=== PATIENT | female | born 1960 | race Caucasian/White ===

== ENCOUNTER 2019-09-02 14:28 | Emergency (ER) | payer OTHER ==
--- NOTE | 2019-09-02 15:51 | RAD ---
Exam: XR Wrist 3 Rt View STANDARD HISTORY: Slipped and fall. Injury to right wrist. COMPARISON: None FINDINGS: There is a transverse minimally but nondisplaced fracture involving the distal right radial metaphysis. No significant angulation of fracture fragments is present. No additional fracture is seen. Mild subcutaneous soft tissue swelling is present. IMPRESSION: Transverse minimally but nondisplaced distal right radial metaphyseal fracture.
--- NOTE | 2019-09-02 15:53 | RAD ---
Exam: XR Forearm Rt 2 View STANDARD HISTORY: Injury after slipping and falling. Pain to right arm. COMPARISON: None FINDINGS: As noted on views of the right wrist, there is a predominantly transverse fracture involving the dist al right radial metaphysis. However, views of forearm demonstrate that the fracture is mildly comminuted, but no intra-articular extension of the fracture is appreciated. There is no significant angulation or distraction of fracture fragments. No additional fracture seen, and there is no dislocation. IMPRESSION: Mildly comminuted distal right radial metaphyseal fracture.
--- NOTE | 2019-09-02 15:54 | RAD ---
Exam: XR Elbow Rt 2 View HISTORY: Right elbow injury. Right arm pain. COMPARISON: None FINDINGS: No acute fracture, dislocation, or other acute osseous abnormality is identified. IMPRESSION: No acute osseous abnormality is identified.
--- NOTE | 2019-09-02 15:54 | RAD ---
Exam: XR Knee Lt 4 View STANDARD HISTORY: Injury after slipping and falling. Patient complains of left leg pain. COMPARISON: None FINDINGS: Mild tricompartment osteophytosis is present. No acute fracture, dislocation, or other acute osseous abnormality is identified. There is suggestion of small amount of fluid in the suprapatellar location which is likely physiologi c. IMPRESSION: No acute osseous abnormality is identified.
--- NOTE | 2019-09-02 15:56 | RAD ---
Exam: XR Foot Lt 3 View STANDARD HISTORY: Left foot injury after slipping and falling. COMPARISON: None FINDINGS: Small round lucency is seen within the cuboid bone which may represent small intraosseous ganglion or small bone cyst. No acute fracture, dislocation, or other acute osseous abnormality is identified. IMPRESSION: No acute osseous abnormality is identified.
--- NOTE | 2019-09-02 15:59 | RAD ---
Exam: XR Hand Rt 3 View STANDARD HISTORY: Patient slipped and fell injuring right upper extremity. Right wrist pain. COMPARISON: Views of the right forearm and wrist. FINDINGS: As noted on views of the right forearm and wrist, there is a minimally and predominantly tr ansverse fracture involving the distal right radial metaphysis. Views of the forearm show that the fracture is mildly comminuted. Tiny osseous density seen adjacent to the ulnar styloid process which may represent a very tiny avulsion injury. An additional tiny osseous density is seen adjacent to the triquetral bone which also may represent a tiny fracture fragment. No additional fracture is seen , and there is no dislocation. IMPRESSION: Mild comminuted fracture distal right radial metaphysis. Tiny avulsion injury ulnar styloid process with an additional tiny osseous density adjacent to the tr iquetral bone. This density may also be related to tiny avulsion injury; although, the exact age is indeterminate.
--- NOTE | 2019-09-02 16:16 | RAD ---
THREE VIEWS LEFT HAND: Comparison: None History: Fall with left hand pain. FINDINGS: Three views of the left hand shows no evidence of acute fracture or dislocation. No focal soft tissue swelling is seen. No degenerative changes are present. IMPRESSION: No evidence of acute osseous abnormality. POS: [facility]
--- NOTE | 2019-09-02 16:16 | RAD ---
THREE VIEWS LEFT ANKLE: Comparison: None History: Fall with left ankle pain. FINDINGS: Three views of the left ankle shows no evidence of acute fracture or dislocation. No soft tissue swel ling is seen. No degenerative changes are present. IMPRESSION: No evidence of acute osseous abnormality. POS: [facility]
[2019-09-02] MEDS ORDERED: HYDROcodone/Acetaminophen 5/325 mg Tablet ONE (16:48)
[2019-09-02] MEDS ORDERED: Ibuprofen 800 MG TAB ONE (16:48)
== END 2019-09-02 15:50 | disposition home or self-care (01) ==
LOC: ERS 14:28
DX: S59.201A Unspecified physeal fracture of lower end of radius, right arm, initial encounter for closed fracture (principal); S80.12XA Contusion of left lower leg, initial encounter; G62.9 Polyneuropathy, unspecified; K21.9 Gastro-esophageal reflux disease without esophagitis; E78.5 Hyperlipidemia, unspecified; Z79.899 Other long term (current) drug therapy; W01.0XXA Fall on same level from slipping, tripping and stumbling without subsequent striking against object, initial encounter
CPT/HCPCS: 29125

== ENCOUNTER 2022-09-30 14:31 | Outpatient (CLI) | payer BC | END 2022-09-30 14:32 | disposition home or self-care (01) | LOC: SCSMRI 14:31 | PROVIDERS: ATTEND Orthopaedic Surgery | DX: M24.812 Other specific joint derangements of left shoulder, not elsewhere classified (principal); S43.432A Superior glenoid labrum lesion of left shoulder, initial encounter ==

== ENCOUNTER 2025-03-08 13:30 | Outpatient (CLI) | payer BC, MEDICARE | END 2025-03-08 13:31 | disposition home or self-care (01) | LOC: CT 13:30 | PROVIDERS: ATTEND Physician Assistant | DX: R91.1 Solitary pulmonary nodule (principal) | CPT/HCPCS: 71250 ==